=== PATIENT | female | born 1950 | race Caucasian/White ===

== ENCOUNTER → 2021-08-31 | Outpatient (CLI) | payer MEDICARE ==
[~2021-08-31] MED LIST: ACTOS30 MG PO; BIOTIN-D0.5 GM PO; COZAAR50 MG PO; FOLGARD TABLET1 EACH PO; GLUCOTROL5 MG PO; LIDOCAINE TOP; LIPITOR TAB 1010 MG PO; NEURONTIN600 MG PO; OS-CAL 500+D31 EACH PO; PROBIOTIC1 EAC3 PO; PROTONIX40 MG PO; SUPER B COMPLE150 MG PO; THERAGRAN M TAB1 EA PO; VIT B IM; VITAMIN B-1000 MCG/M SC
== END ==
LOC: CT 08-28 09:30
DX: I10 Essential (primary) hypertension (principal); R11.2 Nausea with vomiting, unspecified; K76.0 Fatty (change of) liver, not elsewhere classified; N28.1 Cyst of kidney, acquired; I70.0 Atherosclerosis of aorta; R93.3 Abnormal findings on diagnostic imaging of other parts of digestive tract; Z90.710 Acquired absence of both cervix and uterus; Z90.49 Acquired absence of other specified parts of digestive tract
CPT/HCPCS: 36415; 82565; 84520; Q9967